=== PATIENT | male | born 1985 | race Caucasian/White ===

== ENCOUNTER → 2025-04-24 07:03 | Outpatient (REF) | payer OTHER, SELFPAY ==
[2025-04-24 07:30] VITALS: BP 122/76; BP_SYST 70
[2025-04-24 07:31] LABS: Hematocrit 39.4 % (39.0-52.0); Hemoglobin 12.9 g/dL (13.0-18.0); Mean Corp Hgb Conc. 32.7 g/dL (33.0-37.0); Mean Corpuscular Volume 91.0 fL (80.0-94.0); Nucleated Red Blood Cells % 0 % (-); Platelet Count 478 10^3/uL (130-400); Red Cell Dist. Width 14.4 % (11.5-14.5)
[2025-04-24] MEDS: ATIVAN 0.5 MG PO (07:47)
[2025-04-24 08:17] LABS: INR 0.98; PT 13.4 Sec (11.4-14.6)
[2025-04-24 09:09] VITALS: BP 118/75
== END ==
LOC: RADI 07:03
PROVIDERS: ATTENDING PHYSICIAN Internal Medicine Hematology & Oncology; FAMILY PHYSICIAN Family Medicine
DX: D45 Polycythemia vera (principal); D68.8 Other specified coagulation defects; D47.3 Essential (hemorrhagic) thrombocythemia
CPT/HCPCS: 36415; 38222; 77012; 85025; 85610; 88305; 88311; 88312; 88313